=== PATIENT | female | born 1965 | race Two or more races ===

== ENCOUNTER 2022-01-14 12:05 | Emergency (ER) | payer MEDICAID ==
[~2022-01-14] VITALS: Ht 152.4 cm; Wt 89.8 kg
[2022-01-14 18:49] VITALS: BP 134/62
== END 2022-01-14 19:34 | disposition home or self-care (01) ==
LOC: ER 12:05 → EDBD 12:05 → ER 19:34
DX: F10.129 Alcohol abuse with intoxication, unspecified (principal); Y90.8 Blood alcohol level of 240 mg/100 ml or more
CPT/HCPCS: 82962

== ENCOUNTER 2022-12-03 08:10 | Emergency (ER) | payer MEDICAID ==
[~2022-12-03] VITALS: Ht 152.4 cm; Wt 67.9 kg
[2022-12-03 08:22] VITALS: BP 146/82
[2022-12-03 08:48] LABS: Basophils # (auto) 0 10 ^3/uL (0-0.2); Eosinophils # (auto) 0.1 10 ^3/uL (0-0.8); Hemoglobin 14.4 g/dL (12.2-16.2); Monocytes # (auto) 0.7 10 ^3/uL (0-1.3); Neutrophils # (auto) 1.8 10 ^3/uL (1.6-8.6); Nucleated Red Blood Cells % 0.2 %; Red Cell Distribution Width 13.1 % (11.8-14.3)
[2022-12-03 08:50] LABS: Basophils % (auto) 0.5 % (0.0-2.0); Hematocrit 41.8 % (36.0-46.0); Lymphocytes % (auto) 27.7 % (10.0-50.0); Mean Corpuscular Hemoglobin 35.8 pg (28.0-32.0); Mean Corpuscular Hgb Conc. 34.4 g/dL (32.0-36.0); Mean Corpuscular Volume 104.3 fL (80.0-100.0); Neutrophils % (auto) 49.5 % (37.0-80.0); Red Blood Cells 4.01 10^6/uL (4.0-5.20); White Blood Cell 3.7 10^3/uL (4.4-10.8)
[2022-12-03] MEDS ORDERED: SODIUM CHLORIDE 0.9% 1,000 ML IV ONE (09:00)
[2022-12-03 09:05] LABS: Albumin 3.2 g/dL (3.4-5.0); Potassium 3.7 mmol/L (3.5-5.1)
[2022-12-03 09:09] LABS: BUN/Creatinine Ratio 11.5; Bilirubin, Total 2.9 mg/dL (0.2-1.0); Monocytes % (auto) 20.3 % (0.0-12.0); Total Protein 6.9 g/dL (6.4-8.2)
[2022-12-03 10:57] LABS: Urine Bacteria NONE SEEN /hpf (None Seen); Urine Blood Negative /uL (Negative); Urine Specific Gravity 1.015 (1.001-1.035); Urine WBC 4 /hpf (0 - 5)
== END 2022-12-03 17:37 | disposition home or self-care (01) ==
LOC: ER 08:10
DX: K76.9 Liver disease, unspecified (principal); Z90.49 Acquired absence of other specified parts of digestive tract
CPT/HCPCS: 36415; 74176; 80053; 81001; 83690; 84484; 85025; 93005; 96360; 99285; J7030